=== PATIENT | male | born 1980 | race Caucasian/White ===

== ENCOUNTER 2018-06-05 10:26 | Day surgery (SDC) | payer OTHER ==
[2018-06-05] MEDS ORDERED: LACTATED RINGER'S 1,000 ML IV (11:30)
[2018-06-05] MEDS ORDERED: CEFAZOLIN 2 GM/50 ML (PMX) 50 ML IVPB (12:30)
[2018-06-05] MEDS ORDERED: FENTAnyl 50 MCG/ML VIAL ×2 (12:39→12:56)
[2018-06-05] MEDS ORDERED: MIDAZOLAM 1 MG/ML 2 ML INJ (12:39)
[2018-06-05] MEDS: BUPIVACAINE 0.5% (SDV) 30 ML INJ (13:00)
[2018-06-05] MEDS ORDERED: PROPOFOL 20 ML (13:29)
[2018-06-05] MEDS ORDERED: CEFAZOLIN 1 GM INJ (13:29)
[2018-06-05] MEDS ORDERED: LIDOCAINE 2% (SDV) 5 ML INJ (13:29)
[2018-06-05] MEDS ORDERED: ONDANSETRON 4 MG INJ (13:29)
[2018-06-05] MEDS ORDERED: HYDROmorphONE 1 MG/5 ML IV SYRINGE IV ×2 (14:00)
[2018-06-05] MEDS ORDERED: FENTAnyl 50 MCG/ML VIAL IV (14:00)
[2018-06-05] MEDS ORDERED: DIPHENHYDRAMINE 50 MG INJ IV (14:00)
[2018-06-05] MEDS ORDERED: LABETALOL HCL 20MG INJ IV (14:00)
[2018-06-05] MEDS ORDERED: ONDANSETRON 4 MG INJ IV (14:00)
[2018-06-05] MEDS ORDERED: MEPERIDINE 25 MG INJ IV (14:00)
[2018-06-05] MEDS ORDERED: HYDROCODONE/APAP (5/325) TAB PO (14:00)
== END 2018-06-05 16:00 | disposition home or self-care (01) ==
LOC: SDS 10:26
DX: N47.1 Phimosis (principal); N48.1 Balanitis
CPT/HCPCS: 54161; 88304